=== PATIENT | female | born 2000 | race Caucasian/White ===

== ENCOUNTER 2024-02-09 16:44 | Inpatient (IN) | payer BC ==
[~2024-02-09 16:44] MED LIST: Acetaminophen 500 MG TAB PO PRN; Bupivacaine HCl 0.5%/Epinephrine 1:200,000/PF 30 ml Vial ONE; Lidocaine 2% MPF 10 ML AMP (For Epidural Use) ONE; Ondansetron PF 4 MG/2 ML Vial IVP PRN; Oxytocin 30 units/NS 500 ML 500 ML IV SCH; Promethazine HCl 25 MG/ML VIAL IM PRN; Zolpidem Tartrate 5 MG TAB PO PRN; hydrALAZINE 20 MG/ML VIAL SLOW IVP PRN
[2024-02-09] MEDS ORDERED: Labetalol HCl 100 MG/20 ML VIAL SLOW IVP PRN (18:00)
[2024-02-09] MEDS ORDERED: Magnesium Sulfate 20 gm/500 ml 20 GM/500 ML BAG IVPB SCH (18:18)
[2024-02-09] MEDS ORDERED: Magnesium Sulfate 20 gm/500 ml 4 GM/100 ML BAG IVPB SCH (18:18)
[2024-02-09] MEDS ORDERED: Lorazepam 2 MG/ML VIAL SLOW IVP PRN (18:18)
[2024-02-09] MEDS ORDERED: Calcium Gluc 4.6 MEQ/10 ML (100 MG/ML) SLOW IVP PRN (18:18)
[2024-02-10] MEDS ORDERED: Fluticasone Propionate Nasal Spray 16 gm Bottle NASAL PRN (04:45)
[2024-02-10] MEDS ORDERED: fentaNYL 50 mcg/mL 1 mL Vial SLOW IVP PRN (21:50)
[2024-02-10 22:10] LABS: ALT (SGPT) 13 U/L (8-55); AST (SGOT) 18 U/L (5-34); Albumin 2.8 g/dL (3.5-5.0); Alkaline Phosphatase 124 U/L (40-110); Anion Gap 15 mmol/L (10-20); BUN (Urea Nitrogen) 6 mg/dL (7.0-18.7); Bilirubin, Total 0.2 mg/dL (0.2-1.2); Calc. Creatinine Clearance 0 mL/min (70-130); Calcium 9.4 mg/dL (7.8-10.44); Carbon Dioxide 18 mmol/L (22-29); Chloride 108 mmol/L (98-107); Estimated GFR 125; Globulin 3.3 g/dL (2.4-3.5); Glucose 77 mg/dL (70-105); Potassium 4.2 mmol/L (3.5-5.1); Protein, Total 6.1 g/dL (6.0-8.3); Sodium 137 mmol/L (136-145)
[2024-02-10 22:17] LABS: #Basophils 0.03 10x3/uL (0.0-0.2); #Eosinophils 0.04 10x3/uL (0.0-0.5); %Basophils 0.2 % (0.0-2.0); %Eosinophils 0.3 % (0.0-6.0); %Lymphocytes 13.4 % (18.0-47.0); %Monocytes 4.5 % (0.0-10.0); %Neutrophils 80.9 % (40.0-75.0); Hematocrit 32.4 % (34.9-44.5); Hemoglobin 10.6 g/dL (12.0-15.5); Mean Corpuscular HGB CONC 32.7 g/dL (32.0-36.0); Mean Corpuscular Hemoglobin 26.4 pg (27.0-33.0); Mean Corpuscular Volume 80.6 fL (81.6-98.3); Mean Platelet Volume 10.9 fL (7.4-10.4); Platelet Count 419 10x3/uL (150-450); RBC Distribution Width 13.9 % (11.5-14.5); Red Blood Cell (RBC) Count 4.02 10x6/uL (3.90-5.03); White Blood Cell (WBC) Count 13.5 10x3/uL (3.5-10.5)
[2024-02-10 22:18] LABS: Clarity Clear (Clear); Leukocyte Negative (Negative); Specific Gravity, Urine 1.015 (1.005-1.030)
[2024-02-10 22:19] LABS: Bilirubin Negative (Negative); Glucose, Urine (Dipstick) Normal (Negative); Ketone, Urine Negative (Negative); Nitrite Negative (Negative); Protein, Urine (Dipstick) 15 mg/dl (Neg-Trace); Urobilinogen Normal mg/dL (Less than 2)
[2024-02-10 22:20] LABS: Blood, Urine Negative (Negative)
[2024-02-11] MEDS ORDERED: Naloxone HCl 0.4 mg/ml Vial IV PRN ×2 (04:22→09:07)
[2024-02-11] MEDS ORDERED: Promethazine HCl 25 MG/ML VIAL IM PRN ×2 (04:22→09:07)
[2024-02-11] MEDS ORDERED: Acetaminophen 325 MG TAB PO PRN (04:22)
[2024-02-11] MEDS ORDERED: Ondansetron PF 4 MG/2 ML Vial IVP PRN ×3 (04:22→09:07)
[2024-02-11] MEDS ORDERED: ePHEDrine Sulfate 50 MG/10 ML VIAL SLOW IVP PRN (04:24)
[2024-02-11] MEDS ORDERED: [UNRECOGNIZED DRUG - OTHER] FS PRN (04:27)
[2024-02-11] MEDS ORDERED: fentaNYL/Ropivacaine Epidural 100 ML in Premix 1 BAG EPIDURAL SCH (04:30)
[2024-02-11] MEDS ORDERED: Lactated Ringer's 500 ML IV PRN (04:30)
[2024-02-11] MEDS ORDERED: Moisturizing Cream (Eucerin) 113 GM JAR TOP PRN ×2 (04:30→09:07)
[2024-02-11 06:30] VITALS: BMI 58.1
[2024-02-11 07:15] LABS: ALT (SGPT) 14 U/L (8-55); AST (SGOT) 19 U/L (5-34); Albumin 2.7 g/dL (3.5-5.0); Alkaline Phosphatase 122 U/L (40-110); Anion Gap 15 mmol/L (10-20); BUN (Urea Nitrogen) 10 mg/dL (7.0-18.7); Bilirubin, Total 0.2 mg/dL (0.2-1.2); Calc. Creatinine Clearance 300 mL/min (70-130); Calcium 8.5 mg/dL (7.8-10.44); Carbon Dioxide 18 mmol/L (22-29); Chloride 107 mmol/L (98-107); Estimated GFR 115; Globulin 3.8 g/dL (2.4-3.5); Glucose 100 mg/dL (70-105); Potassium 3.9 mmol/L (3.5-5.1); Protein, Total 6.5 g/dL (6.0-8.3); Sodium 136 mmol/L (136-145)
[2024-02-11 09:01] LABS: Analyzer IN Cardio CS NICU; RapidComm Collect By CBN
[2024-02-11 09:03] LABS: Analyzer IN Cardio CS NICU; RapidComm Collect By CBN; pH (Cord, venous) 7.303 (7.250-7.350)
[2024-02-11] MEDS ORDERED: Meperidine HCl/PF 25 MG (1 mL) VIAL SLOW IVP PRN (09:07)
[2024-02-11] MEDS ORDERED: HYDROmorphone 0.5 MG/0.5 ML SYRINGE SLOW IVP PRN (09:07)
[2024-02-11] MEDS ORDERED: Naloxone HCl 0.4 mg/ml Vial IVP PRN ×2 (09:07)
[2024-02-11] MEDS ORDERED: diphenhydrAMINE 50 MG/ML VIAL IVP PRN (09:07)
[2024-02-11] MEDS ORDERED: Ketorolac Tromethamine 30 MG (1 mL) VIAL IVP SCH (09:15)
[2024-02-11] MEDS ORDERED: Communication Order-Pharmacy FS SCH (09:15)
[2024-02-11 10:07] LABS: Critical Call Chemistry NUR.DL7@1000
[2024-02-11] MEDS: Lactated Ringer's 1,000 ML IV SCH (10:23)
[2024-02-11] MEDS: Misoprostol 100 MCG TAB VAG SCH (10:27)
[2024-02-11] MEDS: Docusate 100 MG CAP PO SCH (10:29)
[2024-02-11] MEDS: Vancomycin 1 GM in Sodium Chloride 0.9% 250 ML 250 ML IVPB SCH (10:31)
[2024-02-11] MEDS: Misoprostol 100 MCG TAB ONE ×4 (10:32→13:53)
[2024-02-11] MEDS: fentaNYL/Ropivacaine Epidural 100 ML ONE ×2 (10:32→13:46)
[2024-02-11] MEDS: CEFAZOLIN 1 GM VIAL ONE (10:32)
[2024-02-11] MEDS: CEFAZOLIN 2 GM VIAL ONE (10:32)
[2024-02-11] MEDS: Erythromycin Base 0.5% Oint 1 GM TUBE ONE (10:33)
[2024-02-11] MEDS: fentaNYL 50 mcg/mL 1 mL Vial ONE ×2 (10:33→13:47)
[2024-02-11] MEDS: Morphine PF 10 MG/10 ML VIAL ONE (10:35)
[2024-02-11] MEDS: Promethazine HCl 25 MG/ML VIAL ONE (10:36)
[2024-02-11] MEDS: Ondansetron PF 4 MG/2 ML Vial ONE (10:36)
[2024-02-11] MEDS: ePHEDrine Sulfate 50 MG/10 ML VIAL ONE (10:36)
[2024-02-11] MEDS: Phytonadione Neonatal 1 MG/0.5 ML AMP ONE (10:36)
[2024-02-11] MEDS: Oxytocin 10 UNITS/ML VIAL ONE ×2 (10:36)
[2024-02-11] MEDS: Carboprost 250 MCG/ML AMP ONE (10:37)
[2024-02-11] MEDS: Tranexamic Acid 1,000 MG/10 ML VIAL ONE (10:37)
[2024-02-11] MEDS: Misoprostol 200 MCG TAB ONE (10:37)
[2024-02-11] MEDS: Labetalol HCl 100 MG TAB PO SCH (10:38)
[2024-02-11] MEDS: Acetaminophen 500 MG TAB PO SCH ×2 (10:38→10:54)
[2024-02-11] MEDS: Furosemide 20 MG (2 mL) VIAL SLOW IVP SCH (10:48)
[2024-02-11] MEDS: Penicillin G Potassium 5 MILL.UNITS in Sodium Chloride 0.9% 100 ML IVPB SCH (10:54)
[2024-02-11] MEDS: NIFEdipine XL 30 MG ER.TAB PO SCH (11:00)
[2024-02-11] MEDS: hydrALAZINE 20 MG/ML VIAL SLOW IVP PRN ×2 (11:01→23:50)
[2024-02-11] MEDS: fentaNYL 50 mcg/mL 1 mL Vial SLOW IVP PRN (11:20)
[2024-02-11] MEDS: Ketorolac Tromethamine 30 MG (1 mL) VIAL IVP PRN (11:55)
[2024-02-11] MEDS: Labetalol HCl 100 MG/20 ML VIAL SLOW IVP PRN (12:41)
[2024-02-11] MEDS: diphenhydrAMINE 50 MG/ML VIAL IVP PRN (13:37)
[2024-02-11] MEDS: Labetalol HCl 100 MG TAB ONE ×3 (13:45→13:53)
[2024-02-11] MEDS: Acetaminophen 500 MG TAB ONE ×3 (13:45→13:52)
[2024-02-11] MEDS: Vancomycin 1 GM VIAL ONE ×2 (13:46→13:52)
[2024-02-11] MEDS: hydrALAZINE 20 MG/ML VIAL ONE ×2 (13:46→13:51)
[2024-02-11] MEDS: NIFEdipine 10 MG CAP ONE (13:50)
[2024-02-11] MEDS: Magnesium Sulfate 20 gm/500 ml 20 GM/500 ML BAG ONE ×2 (13:51→13:52)
[2024-02-11 15:29] LABS: Magnesium 3.9 mg/dL (1.6-2.6)
[2024-02-11 22:20] LABS: Creatinine, Urine 108.64 mg/dL (47-110)
[2024-02-11 22:26] LABS: Anion Gap 13 mmol/L (10-20); BUN (Urea Nitrogen) 10 mg/dL (7.0-18.7); Calc. Creatinine Clearance 312 mL/min (70-130); Calcium 8.4 mg/dL (7.8-10.44); Carbon Dioxide 20 mmol/L (22-29); Chloride 106 mmol/L (98-107); Estimated GFR 121; Glucose 94 mg/dL (70-105); Potassium 3.7 mmol/L (3.5-5.1); Sodium 135 mmol/L (136-145)
[2024-02-11 22:38] LABS: RBC/HPF Greater than 50 HPF (0-3)
[2024-02-11 22:41] LABS: Bacteria/HPF 1+ HPF (None Seen); Squamous Epithelial 0-3 HPF (0-3)
[2024-02-11 23:15] LABS: Bilirubin Neg (Negative); Blood, Urine 250 (Negative); Glucose, Urine (Dipstick) Normal (Negative); Ketone, Urine Negative (Negative); Leukocyte 100 (Negative); Nitrite Negative (Negative); Protein, Urine (Dipstick) 30 mg/dl (Neg-Trace); Specific Gravity, Urine 1.025 (1.005-1.030); Urobilinogen Normal mg/dL (Less than 2)
[2024-02-11 23:16] LABS: Clarity Cloudy (Clear)
[2024-02-12] MEDS ORDERED: Labetalol HCl 100 MG/20 ML VIAL SLOW IVP PRN ×2 (00:53)
[2024-02-12] MEDS: HYDROcodone/Acetaminophen 7.5/325 mg Tablet PO PRN (00:55)
[2024-02-12] MEDS: Furosemide 20 MG (2 mL) VIAL SLOW IVP SCH (01:15)
[2024-02-12 01:44] LABS: Magnesium 3.7 mg/dL (1.6-2.6)
[2024-02-12] MEDS: Labetalol HCl 100 MG/20 ML VIAL SLOW IVP PRN (02:16)
[2024-02-12] MEDS: NIFEdipine XL 30 MG ER.TAB PO SCH ×2 (02:22→14:40)
[2024-02-12] MEDS: Albumin 25% 25 GM (100 mL) BOT IVPB SCH (02:44)
[2024-02-12 04:12] LABS: Bilirubin Neg (Negative); Blood, Urine 250 (Negative); Clarity Clear (Clear); Glucose, Urine (Dipstick) Normal (Negative); Ketone, Urine Negative (Negative); Leukocyte 25 (Negative); Nitrite Negative (Negative); Protein, Urine (Dipstick) Negative (Neg-Trace); Specific Gravity, Urine 1.015 (1.005-1.030); Urobilinogen Normal mg/dL (Less than 2)
[2024-02-12 04:14] LABS: #Basophils 0.04 10x3/uL (0.0-0.2); #Eosinophils 0.03 10x3/uL (0.0-0.5); #Monocytes 0.75 10x3/uL (0.0-1.1); #Neutrophils 8.42 10x3/uL (1.5-8.4); %Basophils 0.3 % (0.0-2.0); %Eosinophils 0.3 % (0.0-6.0); %Lymphocytes 19.7 % (18.0-47.0); %Monocytes 6.5 % (0.0-10.0); %Neutrophils 72.9 % (40.0-75.0); Hematocrit 28.2 % (34.9-44.5); Hemoglobin 9.2 g/dL (12.0-15.5); Mean Corpuscular HGB CONC 32.6 g/dL (32.0-36.0); Mean Corpuscular Hemoglobin 26.5 pg (27.0-33.0); Mean Corpuscular Volume 81.3 fL (81.6-98.3); Mean Platelet Volume 10.1 fL (7.4-10.4); Platelet Count 390 10x3/uL (150-450); RBC Distribution Width 15.2 % (11.5-14.5); Red Blood Cell (RBC) Count 3.47 10x6/uL (3.90-5.03); White Blood Cell (WBC) Count 11.6 10x3/uL (3.5-10.5)
[2024-02-12] MEDS: Labetalol HCl 200 MG TAB PO SCH (04:18)
[2024-02-12 04:30] LABS: Bilirubin, Direct 0.1 mg/dL (0.1-0.3); Bilirubin, Total 0.3 mg/dL (0.2-1.2)
[2024-02-12 04:30] LABS: RBC/HPF 21-50 HPF (0-3)
[2024-02-12 04:32] LABS: ALT (SGPT) 12 U/L (8-55); AST (SGOT) 17 U/L (5-34); Albumin 2.6 g/dL (3.5-5.0); Alkaline Phosphatase 98 U/L (40-110); Anion Gap 14 mmol/L (10-20); BUN (Urea Nitrogen) 8 mg/dL (7.0-18.7); Bilirubin, Total 0.3 mg/dL (0.2-1.2); Calc. Creatinine Clearance 317 mL/min (70-130); Calcium 8.1 mg/dL (7.8-10.44); Carbon Dioxide 20 mmol/L (22-29); Chloride 107 mmol/L (98-107); Estimated GFR 123; Globulin 2.4 g/dL (2.4-3.5); Glucose 89 mg/dL (70-105); Potassium 3.5 mmol/L (3.5-5.1); Sodium 137 mmol/L (136-145)
[2024-02-12 04:32] LABS: Bacteria/HPF Rare-Few HPF (None Seen); Squamous Epithelial 0-3 HPF (0-3)
[2024-02-12] MEDS ORDERED: NIFEdipine XL 30 MG ER.TAB PO SCH ×3 (09:00→16:00)
[2024-02-12] MEDS: Enoxaparin 40 MG (0.4 mL) SYRINGE SC SCH (12:50)
[2024-02-12] MEDS: NIFEdipine 10 MG CAP PO SCH (16:20)
[2024-02-12] MEDS: Labetalol HCl 100 MG TAB PO SCH ×2 (16:27→22:38)
[2024-02-12] MEDS: Ibuprofen 800 MG TAB PO SCH (16:57)
[2024-02-13 05:09] LABS: Albumin 2.5 g/dL (3.5-5.0); Anion Gap 13 mmol/L (10-20); BUN (Urea Nitrogen) 8 mg/dL (7.0-18.7); BUN/Creatinine Ratio 12.31; Calc. Creatinine Clearance 341 mL/min (70-130); Calcium 8.8 mg/dL (7.8-10.44); Carbon Dioxide 23 mmol/L (22-29); Chloride 109 mmol/L (98-107); Estimated GFR 125; Glucose 101 mg/dL (70-105); Phosphorus 4.6 mg/dL (2.3-4.7); Potassium 3.5 mmol/L (3.5-5.1); Sodium 141 mmol/L (136-145)
[2024-02-13] MEDS: Penicillin G 2.5 MILL.units 2.5 MILL.UNITS in Premix 1 BAG IVPB SCH (07:19)
[2024-02-13] MEDS: Labetalol HCl 100 MG TAB PO SCH (08:16)
[2024-02-13] MEDS: NIFEdipine XL 90 MG ER.TAB PO SCH (08:16)
[2024-02-13] MEDS ORDERED: hydrALAZINE 20 MG/ML VIAL SLOW IVP PRN (08:56)
[2024-02-13] MEDS ORDERED: NIFEdipine XL 30 MG ER.TAB PO SCH (09:00)
[2024-02-14 12:02] VITALS: BP 123/68; TEMP 97.6
== END 2024-02-14 14:55 | disposition home or self-care (01) | DRG 788 ==
LOC: CSHLD 16:44 → CSHPP 02-12 13:45
PROVIDERS: ADMIT Obstetrics & Gynecology; ATTEND Obstetrics & Gynecology
PROC: 10D00Z1 Extraction of Products of Conception, Low, Open Approach (ICD-10-PCS; principal; 2024-02-11)
DX: O14.14 Severe pre-eclampsia complicating childbirth (principal); Z3A.36 36 weeks gestation of pregnancy; Z37.0 Single live birth; O99.214 Obesity complicating childbirth; E66.01 Morbid (severe) obesity due to excess calories; R31.9 Hematuria, unspecified; E88.09 Other disorders of plasma-protein metabolism, not elsewhere classified; O99.285 Endocrine, nutritional and metabolic diseases complicating the puerperium; O99.893 Other specified diseases and conditions complicating puerperium; Z88.0 Allergy status to penicillin; Z79.899 Other long term (current) drug therapy; O90.49 Other postpartum acute kidney failure
CPT/HCPCS: 36415; 51702; 76819; 80053; 80069; 81001; 81003; 81015; 82247; 82550; 82570; 82805; 83010; 83615; 83735; 83874; 84156; 85025; 86850; 86900; 86901; 99285; J0360; J1200; J1650; J1885; J1940; J2274; J2405; J2550; J2590; J3010; P9047